=== PATIENT | female | born 1985 | race African-American/Black ===

== ENCOUNTER 2016-12-15 23:49 | Emergency (ER) | payer SELFPAY ==
[~2016-12-15] VITALS: Ht 165.1 cm; Wt 75.7 kg
[2016-12-15 23:58] VITALS: BP 127/69
[2016-12-16 00:24] LABS: BASO # 0.1 x10^3/uL (0.0-0.2); BASO % 1 % (0-3); EOS % 2 % (0-3); HEMATOCRIT 38.1 % (36.0-47.0); HEMOGLOBIN 12.7 g/dL (12.0-15.5); LYMPH # 2.5 x10^3/uL (1.0-4.8); LYMPH % 32 % (24-48); MEAN CORPUSCULAR HEMOGLOBIN 32 pg (25-35); MEAN CORPUSCULAR HGB CONC 33 g/dL (31-37); MEAN CORPUSCULAR VOLUME 96 fL (79-100); MONO % 7 % (0-9); NEUT % 58 % (31-73); PLATELET COUNT 324 x10^3/uL (140-400); RED BLOOD COUNT 3.96 x10^6/uL (3.50-5.40); RED CELL DISTRIBUTION WIDTH 13.6 % (11.5-14.5); WHITE BLOOD COUNT 7.7 x10^3/uL (4.0-11.0)
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
[2016-12-16 01:03] LABS: BILIRUBIN,URINE NEGATIVE (NEG); GLUCOSE,URINE NEGATIVE (NEG); NITRITE,URINE NEGATIVE (NEG); PH,URINE 6.5; PROTEIN,URINE NEGATIVE (NEG-TRACE); UROBILINOGEN,URINE 0.2 mg/dL (0.2 mg/dL)
[2016-12-16 01:04] LABS: BACTERIA,URINE 0 /HPF (0-FEW); RBC,URINE 0 /HPF (0-2); SQUAMOUS EPITHELIAL CELL,UR MOD /LPF; WBC,URINE 0 /HPF (0-4)
[2016-12-16 01:05] LABS: BARBITURATES NEG (NEG); BENZODIAZEPINES NEG (NEG); CANNABINOIDS NEG (NEG); COCAINE NEG (NEG); METHADONE NEG (NEG); OPIATES NEG (NEG); PHENCYCLIDINE POS (NEG)
[2016-12-16 01:29] LABS: CALCIUM 8.9 mg/dL (8.5-10.1); CREATININE 0.7 mg/dL (0.6-1.0); GFR 118.9; POTASSIUM 3.5 mmol/L (3.5-5.1)
[2016-12-16 01:36] LABS: ALBUMIN 3.7 g/dL (3.4-5.0); DIRECT BILIRUBIN 0.2 mg/dL (0.0-0.2); TOTAL BILIRUBIN 0.5 mg/dL (0.2-1.0); TOTAL PROTEIN 6.8 g/dL (6.4-8.2)
[2016-12-16 01:47] LABS: ETHANOL < 10 mg/dL (0-10)
--- NOTE | 2016-12-16 06:28 | EKG ---
[facility] [address] [place] [address] Test Date: 2016-12-16 Test Time: 00:05:09 Pat Name: JONI NOGUERA Department: Room: Gender: F Sap Grc Security: : 1985 Requested By: Jed CLEMENS Order Number: [id number] Reading MD: Measurements Intervals [place] Rate: 60 P: 31 WI: 184 QRS: 116 QRSD: 110 T: 3 QT: 400 QTc: 404 Interpretive Statements SINUS RHYTHM ABNORMAL RIGHT AXIS DEVIATION INCOMPLETE RIGHT BUNDLE BRANCH BLOCK CONSIDER RIGHT VENTRICULAR HYPERTROPHY QRS(T) CONTOUR ABNORMALITY CONSIDER ANTEROSEPTAL MYOCARDIAL DAMAGE CONSIDER INFERIOR MYOCARDIAL DAMAGE RI6.01 Unconfirmed report No previous ECG available for comparison
--- NOTE | 2016-12-16 07:31 | RAD ---
Hand x-rays Indication: Hand pain after, Technique: 3 views of the left hand Comparison: None Findings: No acute fracture or dislocation. No soft tissue abnormality. No arthritic changes. Impression: No acute findings.
== END 2016-12-16 02:09 | disposition home or self-care (01) ==
LOC: ER 23:49 → EEVIPCON 23:49 → ER 12-16 02:09
DX: S80.12XA Contusion of left lower leg, initial encounter (principal); S80.11XA Contusion of right lower leg, initial encounter; S50.11XA Contusion of right forearm, initial encounter; R55 Syncope and collapse; M79.642 Pain in left hand; Y04.0XXA Assault by unarmed brawl or fight, initial encounter; Y93.89 Activity, other specified; Y92.89 Other specified places as the place of occurrence of the external cause; Y99.8 Other external cause status
CPT/HCPCS: 36415; 73130; 80048; 80076; 80307; 80329; 81001; 81025; 84484; 85025; 93005; 99285; G0480; G0479

== ENCOUNTER 2017-01-29 07:54 | Emergency (ER) | payer OTHER ==
[~2017-01-29] VITALS: Ht 165.1 cm; Wt 70.3 kg
[~2017-01-29 07:54] MED LIST: PRED50TA PO; PROAIR HFA8.5 GM INH
[2017-01-29 08:10] VITALS: BP 116/71
--- NOTE | 2017-01-29 08:21 | PHYS DOC ---
Past Medical History Past Medical History: No Pertinent History Past Surgical History: No Surgical History Alcohol Use: None Drug Use: None Adult General Chief Complaint Chief Complaint: COUGH HPI HPI Patient is a 31 year old who presents to the emergency department stating that she's been having nasal congestion with a runny nose for the last 3 days. She also states that she has had chills however denies any fever. She denies any abdominal pain denies any nausea vomiting lightheadedness. Patient does state that she feels weak and states that this is her way of saying she was tired just doesn't feel well. She states she's been taking Tylenol congestion over the counter with no relief. Review of Systems Review of Systems Constitutional: Denies fever or chills [] Eyes: Denies change in visual acuity, redness, or eye pain [] HENT: nasal congestion denies sore throat [] Respiratory: cough denies shortness of breath [] Cardiovascular: No additional information not addressed in HPI [] GI: Denies abdominal pain, nausea, vomiting, bloody stools or diarrhea [] : Denies dysuria or hematuria [] Musculoskeletal: Denies back pain or joint pain [] Integument: Denies rash or skin lesions [] Neurologic: Denies headache, focal weakness or sensory changes [] Endocrine: Denies polyuria or polydipsia [] All other systems were reviewed and found to be within normal limits, except as documented in this note. Allergies Allergies Allergies Coded Allergies Type Severity Reaction Last Updated Verified No Known Drug Allergies 12/16/16 No Physical Exam Physical Exam Constitutional: Well developed, well nourished, no acute distress, non-toxic appearance. [] HENT: Normocephalic, atraumatic, bilateral external ears normal, oropharynx moist, no oral exudates, nose normal. Bilateral tympanic membranes appear to be normal. Patient's throat with erythematous with postnasal drip no exudate noted. Eyes: PERRLA, EOMI, conjunctiva normal, no discharge. [] Neck: Normal range of motion, no tenderness, supple, no stridor. [] Cardiovascular:Heart rate regular rhythm, no murmur [] Lungs & Thorax: Bilateral breath sounds clear to auscultation [] Skin: Warm, dry, no erythema, no rash. [] Extremities: No tenderness, no cyanosis, no clubbing, ROM intact, no edema. [] Neurologic: Alert and oriented X 3, normal motor function, normal sensory function, no focal deficits noted. [] Psychologic: Affect normal, judgement normal, mood normal. [] Current Patient Data Vital Signs Vital Signs Date Time Temp Pulse Resp B/P (MAP) Pulse Ox O2 Delivery O2 Flow Rate FiO2 01/29/17 08:10 98.2 68 18 116/71 (86) 98 Room Air 98.2 EKG EKG [] Radiology/Procedures Radiology/Procedures [] Course & Med Decision Making Course & Med Decision Making Pertinent Labs and Imaging studies reviewed. (See chart for details) I suspect this is a viral infection emesis was only been going on for the last 2 -3 days. Recommended the patient to use Sudafed [id number] as well as Mucinex DM. Recommended plenty of fluids. Tylenol and ibuprofen for fever chills or generalized body aches and discomfort. Patient agrees with the instructions and discharge instructions. Patient will be discharged home with signs and symptoms to return back to the emergency department. Recommended followup with PCP in 3-5 days. I've spoken with the patient and/or caregivers. I've explained the patient's condition, diagnosis and treatment plan based on information available to me at this time. I've answered the patient's and/or caregivers questions and addressed any concerns. The patient and/or caregivers have a good understanding the patient's diagnosis, condition and treatment plan as can be expected at this point. Vital signs have been stabilized. The patient's condition is stable for discharge from the emergency department. The patient will pursue further outpatient evaluation with her primary care provider or other designated consulting physician as outlined in the discharge instructions. Patient and/or caregivers are agreeable to this plan of care and follow-up instructions have been explained in detail. The patient and/or caregivers have received these instructions in written format and expressed understanding of these discharge instructions. The patient and her caregivers are aware that if any significant change in condition or worsening of symptoms should prompt him to immediately return to this of the closest emergency department.~ If an emergent department is not readily available I would encourage him to call 911. [] Dragon Disclaimer Dragon Disclaimer This electronic medical record was generated, in whole or in part, using a voice recognition dictation system. Departure Departure Impression: Primary Impression: Upper respiratory infection Disposition: HOME, SELF-CARE Condition: STABLE Referrals: NO PCP (PCP) Patient Instructions: Upper Respiratory Infection, Adult, [id number] Additional Instructions: Activity as tolerated. Medications as prescribed such as Sudafed and Mucinex DM which can be taken instructed by manufacture [id number]. Drink plenty of fluids such as water Gatorade or propels. Follow-up with her primary care physician in the next 3-5 days. Return back to the emergency Department for signs and symptoms become worse. Problem Qualifiers Primary Impression: Upper respiratory infection URI type: unspecified URI Qualified Codes: J06.9 - Acute upper respiratory infection, unspecified BERTIN HARPER [employer] Jan 29, 2017 08:21
== END 2017-01-29 08:25 | disposition home or self-care (01) ==
LOC: ER 07:54
DX: J06.9 Acute upper respiratory infection, unspecified (principal)
CPT/HCPCS: 99281

== ENCOUNTER 2017-02-01 19:05 | Emergency (ER) | payer OTHER ==
[2017-02-01 19:24] VITALS: BP 119/67
[2017-02-01] MEDS ORDERED: IBUPROFEN 800 MG TABLET. PO ONE (19:45)
--- NOTE | 2017-02-01 19:50 | PHYS DOC ---
Past Medical History Past Medical History: No Pertinent History Past Surgical History: No Surgical History Alcohol Use: None Drug Use: None Adult General Chief Complaint Chief Complaint: FINGER INJURY HPI HPI Patient is a 31 year old female resents to the emergency department stating that she has having left fifth finger pain and discomfort for the last 3 days. She states she went to try to open up the car door when her hand slipped. She states that she is having pain in the P joint. She states she has increased pain and discomfort with movement. She does have redness and swelling noted to the finger. Patient states she has not taken anything for pain and discomfort. She denies any change in sensation. Patient states she is right-hand dominant. Review of Systems Review of Systems Constitutional: Denies fever or chills [] Eyes: Denies change in visual acuity, redness, or eye pain [] HENT: Denies nasal congestion or sore throat [] Respiratory: Denies cough or shortness of breath [] Cardiovascular: No additional information not addressed in HPI [] GI: Denies abdominal pain, nausea, vomiting, bloody stools or diarrhea [] : Denies dysuria or hematuria [] Musculoskeletal: Denies back pain or joint pain. complaining of left fifth finger pain and discomfort Integument: Denies rash or skin lesions [] Neurologic: Denies headache, focal weakness or sensory changes [] Endocrine: Denies polyuria or polydipsia [] All other systems were reviewed and found to be within normal limits, except as documented in this note. Current Medications Current Medications Current Medications Medications (Trade) Dose Ordered Sig/[facility] Start Time Stop Time Status Last Admin Dose Admin Ibuprofen (Motrin) 800 mg 1X ONCE 02/01/17 19:45 02/01/17 19:46 Allergies Allergies Allergies Coded Allergies Type Severity Reaction Last Updated Verified No Known Drug Allergies 12/16/16 No Physical Exam Physical Exam Constitutional: Well developed, well nourished, no acute distress, non-toxic appearance. [] HENT: Normocephalic, atraumatic, bilateral external ears normal, oropharynx moist, no oral exudates, nose normal. [] Eyes: PERRLA, EOMI, conjunctiva normal, no discharge. [] Neck: Normal range of motion, no tenderness, supple, no stridor. [] Cardiovascular:Heart rate regular rhythm Lungs & Thorax: No respiratory distress noted Skin: Warm, dry, no erythema, no rash. [] Extremities: Left fifth finger tenderness, no cyanosis, no clubbing, ROM intact , no edema. She'll with redness and swelling noted to the left fifth finger. She with good sensation to the tips of the fingers. Cap refill brisk less than 2 seconds. Neurologic: Alert and oriented X 3, normal motor function, normal sensory function, no focal deficits noted. [] Psychologic: Affect normal, judgement normal, mood normal. [] Current Patient Data Vital Signs Vital Signs Date Time Temp Pulse Resp B/P (MAP) Pulse Ox O2 Delivery O2 Flow Rate FiO2 02/01/17 19:24 97.5 58 18 97 Room Air 97.5 EKG EKG [] Radiology/Procedures Radiology/Procedures [] Course & Med Decision Making Course & Med Decision Making Pertinent Labs and Imaging studies reviewed. (See chart for details) Left hand x-ray identified a fracture at the fifth MIP joint per Dr Carl she will be placed in aluminum splint with recommendations for ice packs on 20 minutes off 20 minutes several times a day. Elevation as much as possible. Tylenol and ibuprofen for pain and discomfort. Patient will be provided with orthopedic name and number to follow-up with. Patient was provided with signs and symptoms to return back to the emergency department. I've spoken with the patient and/or caregivers. I've explained the patient's condition, diagnosis and treatment plan based on information available to me at this time. I've answered the patient's and/or caregivers questions and addressed any concerns. The patient and/or caregivers have a good understanding the patient's diagnosis, condition and treatment plan as can be expected at this point. Vital signs have been stabilized. The patient's condition is stable for discharge from the emergency department. The patient will pursue further outpatient evaluation with her primary care provider or other designated consulting physician as outlined in the discharge instructions. Patient and/or caregivers are agreeable to this plan of care and follow-up instructions have been explained in detail. The patient and/or caregivers have received these instructions in written format and expressed understanding of these discharge instructions. The patient and her caregivers are aware that if any significant change in condition or worsening of symptoms should prompt him to immediately return to this of the closest emergency department. If an emergent department is not readily available I would encourage him to call 911. [] Dragon Disclaimer Dragon Disclaimer This electronic medical record was generated, in whole or in part, using a voice recognition dictation system. Departure Departure Impression: Primary Impression: Finger fracture, left Disposition: 01 HOME, SELF-CARE Condition: STABLE Referrals: NO PCP (PCP) JENNYFER MARTINES MD Patient Instructions: Finger Fracture Additional Instructions: Activity as tolerated. Tylenol or ibuprofen for pain and discomfort. Ice packs on 20 minutes off 20 minutes several times a day. Elevation as much as possible. With a splint to follow-up with orthopedic. Follow-up with orthopedic in the next week. Return back to the emergency department for signs and symptoms that become worse. Problem Qualifiers Primary Impression: Finger fracture, left Encounter type: initial encounter Finger: little finger Fracture type: closed Phalanx: proximal Fracture alignment: nondisplaced Qualified Codes: S62.647A - Nondisplaced fracture of proximal phalanx of left little finger, initial encounter for closed fracture BERTIN HARPER APRN Feb 01, 2017 19:50
--- NOTE | 2017-02-02 08:53 | RAD ---
EXAM: Left hand 3 views. HISTORY: Left hand and 5th finger pain. COMPARISON: 12/16/2016. FINDINGS: There is a nondisplaced fracture at the volar base of the 5th middle phalanx. This may be subacute with evidence of early healing. Surrounding soft tissue swelling is noted. No fractures are identified elsewhere. Joint spaces and alignment are maintained. IMPRESSION: 1. Likely subacute fracture of the volar base of the 5th middle phalanx. Evidence of early healing.
== END 2017-02-01 20:01 | disposition home or self-care (01) ==
LOC: ER 19:05
DX: S62.647A Nondisplaced fracture of proximal phalanx of left little finger, initial encounter for closed fracture (principal); X58.XXXA Exposure to other specified factors, initial encounter; Y93.89 Activity, other specified; Y99.8 Other external cause status; Y92.89 Other specified places as the place of occurrence of the external cause
CPT/HCPCS: 29130; 73130; 99284-25

== ENCOUNTER 2017-09-21 21:23 | Emergency (ER) | payer SELFPAY, OTHER | END 2017-09-21 21:40 | disposition left against medical advice (07) | LOC: ER 21:23 | DX: R50.9 Fever, unspecified (principal); Z53.21 Procedure and treatment not carried out due to patient leaving prior to being seen by health care provider ==